=== PATIENT | female | born 1970 | race Caucasian/White ===

== ENCOUNTER 2016-05-05 15:15 | Emergency (ER) | payer OTHER ==
[~2016-05-05] VITALS: Ht 167.6 cm; Wt 115.0 kg
[2016-05-05 15:25] VITALS: TEMP 98.5
[2016-05-05] MEDS ORDERED: ZANTAC 300300 MG PO (15:30)
[2016-05-05] MEDS ORDERED: RT ADVAIR 228 DISKUS IH (15:31)
[2016-05-05] MEDS ORDERED: XANAX .25M0.25 MG/TA PO (15:31)
[2016-05-05] MEDS ORDERED: PROVENTIL0.09 MG/A1 IH (15:31)
[2016-05-05] MEDS ORDERED: NASACORT OTC NS (15:31)
[2016-05-05 16:05] LABS: BASO % 0.3 % (0.0-2.0); EOS % 0.2 % (0-4.0); GRAN # 7.5 (1.4-6.5); GRAN % 83.8 % (42.2-75.2); HEMOGLOBIN 13.3 g/dl (12.5-16.0); LYMPH % 10.8 % (20.0-51.0); MEAN CELL VOLUME 91 fl (80.0-100.0); MEAN CORPUSCULAR HEMOGLOBIN 31 pg (27.0-31.0); MEAN CORPUSCULAR HGB CONC 34 g/dl (33.0-37.0); MEAN PLATELET VOLUME 10.5 fl (7.4-10.4); MONO # 0.4 (0.1-0.6); MONO % 4.6 % (1.7-9.3); PLATELET COUNT 209 K/mm3 (130-400); REDCELL DISTRIBUTION WIDTH-CV 12.8 % (11.5-14.5)
[2016-05-05 16:19] LABS: ADJUSTED CALCIUM 9.2 mg/dL (8.4-10.2); ALBUMIN 4.3 gm/dL (3.5-5.0); BILIRUBIN,TOTAL 0.7 mg/dL (0.0-1.0); CALCIUM 9.4 mg/dL (8.4-10.2); CREATININE, serum 0.87 mg/dL (0.52-1.25); POTASSIUM 4.1 mmol/L (3.4-5.0); TOTAL PROTEIN 7.5 gm/dL (6.4-8.2)
[2016-05-05] MEDS ORDERED: LOMOTIL 0.025 M1 TAB PO (16:46)
[2016-05-05] MEDS ORDERED: ZOFRAN ODT4 MG PO (16:46)
[2016-05-05 16:57] VITALS: BP 146/90; PULSE 88
== END 2016-05-05 17:11 | disposition home or self-care (01) ==
LOC: COL.ER 15:15
PROVIDERS: Emergency Medicine
DX: K52.9 Noninfective gastroenteritis and colitis, unspecified (principal)
CPT/HCPCS: J1885; J2765; J3010; J7030